=== PATIENT | female | born 1950 ===

== ENCOUNTER 2018-10-14 08:11 | Emergency (ER) | payer OTHER ==
[~2018-10-14] VITALS: Ht 170.2 cm; Wt 77.1 kg
[2018-10-14] MEDS ORDERED: TOPROL XL100 MG PO (08:19)
[2018-10-14] MEDS ORDERED: COZAAR100 MG PO (08:19)
[2018-10-14] MEDS ORDERED: METFORMIN HCL500 M1 PO (08:19)
[2018-10-14] MEDS ORDERED: LIPITOR20 MG PO (08:20)
== END 2018-10-14 10:40 | disposition home or self-care (01) ==
LOC: ER 08:11
DX: K29.70 Gastritis, unspecified, without bleeding (principal)